=== PATIENT | male | born 1970 | race Caucasian/White ===

== ENCOUNTER 2018-08-17 13:14 | Emergency (ER) | payer MEDICAID, SELFPAY ==
[2018-08-17 13:15] VITALS: BP 135/95; PULSE 86; RESP 18; TEMP 36.4; O2SAT 98; BMI 26.6
--- NOTE | 2018-08-17 13:37 | ED.VISSUMM ---
- ER Visit Summary Date of Service: 08/17/18 Chief Complaint: [Rash] History of Present Illness: The patient is a 47 M [presents the emergency department complaint of a rash for over 2 weeks. Patient states that he has been itching and digging at it. Patient states that at times there are welts. He denies any new soaps or detergents. Patient came up here from [place] 3 weeks ago. Patient has been staying with his brother but nobody else at home has this rash. Patient denies recent illness. He denies any new medications. States otherwise he feels fine.] Physical Examination: [HEENT-PERRLA, EOMI. Cranial nerves II through XII grossly intact. TMs clear. Mucous membranes moist. No adenopathy. No scleral icterus. Cardiovascular-regular rate and rhythm without murmur or ectopy Lungs-clear to auscultation, chest wall stable without crepitus or subcu emphysema Abdomen-normoactive bowel sounds, soft, nontender, no rebound or rigidity, no peritoneal signs. Skin exam-patient has a diffuse rash involving the upper extremities, trunk, buttocks that is quite excoriated and pruritic. Patient also has some sporadic red raised urticarial-like lesions. Patient does have some excoriations to the wrists and the web spaces of the digits. Extremities-intact ?4, normal range of motion, normal pulses, atraumatic] Test Results: [None indicated] Emergency Department Course and Treatment: [] Treatment Plan: [She will be written for Elimite as I suspect rash may be related to scabies. Patient also will be given prednisone and Atarax for itching. Patient will be referred to primary care physician as well as manager of data for follow-up.] Disposition: [Discharged home in stable condition] Impression: [Dermatitis Scabies] This note was generated with [employer] dictation software. It may contain incorrect words, spelling, and punctuation that were not noted in review of the chart prior to signing ED Disposition - Plan for ED Patient: Chief Complaint: Itching Referrals: NOT,DEFINED [Primary Care Provider] -
--- NOTE | 2018-08-17 13:40 | ED.DCSUM_ITS ---
- ER Visit Summary Date of Service: 08/17/18 Chief Complaint: [Rash] History of Present Illness: The patient is a 47 M [presents the emergency department complaint of a rash for over 2 weeks. Patient states that he has been itching and digging at it. Patient states that at times there are welts. He denies any new soaps or detergents. Patient came up here from [place] 3 weeks ago. Patient has been staying with his brother but nobody else at home has this rash. Patient denies recent illness. He denies any new medications. States otherwise he feels fine.] Physical Examination: [HEENT-PERRLA, EOMI. Cranial nerves II through XII grossly intact. TMs clear. Mucous membranes moist. No adenopathy. No scleral icterus. Cardiovascular-regular rate and rhythm without murmur or ectopy Lungs-clear to auscultation, chest wall stable without crepitus or subcu emphysema Abdomen-normoactive bowel sounds, soft, nontender, no rebound or rigidity, no peritoneal signs. Skin exam-patient has a diffuse rash involving the upper extremities, trunk, buttocks that is quite excoriated and pruritic. Patient also has some sporadic red raised urticarial-like lesions. Patient does have some excoriations to the wrists and the web spaces of the digits. Extremities-intact ?4, normal range of motion, normal pulses, atraumatic] Test Results: [None indicated] Emergency Department Course and Treatment: [] Treatment Plan: [She will be written for Elimite as I suspect rash may be related to scabies. Patient also will be given prednisone and Atarax for itching. Patient will be referred to primary care physician as well as certified coder for follow-up.] Disposition: [Discharged home in stable condition] Impression: [Dermatitis Scabies] This note was generated with [employer] dictation software. It may contain incorrect words, spelling, and punctuation that were not noted in review of the chart prior to signing ED Disposition - Plan for ED Patient: Chief Complaint: Itching Referrals: NOT,DEFINED [Primary Care Provider] -
--- NOTE | 2018-08-17 13:40 | ED.DEP ---
ED Disposition - Plan for ED Patient: Chief Complaint: Itching Instructions: Scabies Prescriptions: hydrOXYzine tablet [Atarax tablet] 10 mg PO 4X/DAY PRN PRN #30 tab PRN Reason: Itching Permethrin [Elimite] 60 gm TP DAILY #1 cream..g. Prednisone [Deltasone] 20 mg PO BID #10 tab Referrals: NOT,DEFINED [Primary Care Provider] - Gagan Quintana MD [STAFF PHYSICIAN] - 5-7 Days Yogesh Elliott MD [STAFF PHYSICIAN] - 5-7 Days
== END 2018-08-17 14:11 | disposition home or self-care (01) ==
PROVIDERS: Emergency Provider Emergency Medicine
DX: L30.9 Dermatitis, unspecified (principal); B86 Scabies; L50.9 Urticaria, unspecified
CPT/HCPCS: 99282

== ENCOUNTER 2018-12-09 22:25 | Emergency (ER) | payer SELFPAY ==
[2018-12-09 22:26] VITALS: BP 126/87; PULSE 101; RESP 20; TEMP 36.4; O2SAT 99; BMI 25.4
[2018-12-09 22:40] VITALS: BP 141/125; PULSE 90; RESP 13; O2SAT 99
--- NOTE | 2018-12-09 22:43 | EKG12_ITS ---
Test Reason : PALPITATIONS Blood Pressure : / mmHG Vent. Rate : 093 BPM Atrial Rate : 093 BPM P-R Int : 144 ms QRS Dur : 082 ms QT Int : 374 ms P-R-T Axes : 058 -02 047 degrees QTc Int : 465 ms Normal sinus rhythm Minimal voltage criteria for LVH, may be normal variant Nonspecific T wave abnormality Borderline ECG Confirmed by SISI DOLL, FIORDALIZA ([id number]), assignment editor CECILIO YORK ([id number]) on 12/13/2018 1:57:05 PM Referred By: ASIF Confirmed By:FIORDALIZA LAIRD MD
--- NOTE | 2018-12-09 22:50 | RAD_ITS ---
STUDY: X-RAY CHEST REASON FOR EXAM: Male, 47 years old. Heart palpitation TECHNIQUE: PA and lateral views of the chest. COMPARISON: None. FINDINGS: The lungs are clear and hyperexpanded. There is no demonstrated pleural abnormality. Normal size heart. Normal mediastinum and adolfo. Normal visualized pulmonary arteries. Normal visualized aortic arch and descending thoracic aorta. Normal visualized thoracic spine. Normal visualized ribs, clavicles, and shoulders. Remote healed right clavicular deformity. There is no demonstrated abnormality of the visualized soft tissue structures of the upper abdomen. RAD/Chest PA and Lateral IMPRESSION: No pulmonary edema, congestive heart failure or confluent pneumonia. COPD. Electronically Signed: Nakia Townsend MD at 23:12 EDT , Service support ,
[2018-12-09] MEDS: 0.9% Normal Saline 1,000 ML 1000 ML IV (22:53)
[2018-12-09 22:57] LABS: Absolute Lymphocyte Count 1.85 X10^3/ul (0.83-4.51); Absolute Neutrophil Count 9.2 X10^3/uL (2.0-7.7); Basophil# 0.13 X10^3/uL; Basophil% 0.9 % (0-1); Differential Indicated SCAN CRITERIA MET; Eosinophils% 15.1 % (0-5); Hematocrit 43.7 % (40-54); Hemoglobin 15.6 g/dl (13.0-16.5); Lymphocyte # 1.85 X10^3/ul (4.0); Lymphocyte % 12.7 % (19-41); Mean Corp Hgb Conc 35.7 g/gl (32-36); Mean Corpuscular Hgb 32.2 pg (27.0-32.0); Mean Corpuscular Volume 90.1 fL (80-94); Mean Platelet Vol. 8.9 fl (6.2-12.0); Monocyte# 1.16 X10^3/uL; Neutrophil # 9.15 X10^3/uL (2.7-7.7); POSITIVE COUNT NO; POSITIVE DIFFERENTIAL YES; POSITIVE MORPHOLOGY NO; Platelet Count 467 K/mm3 (150-450); RBC Distribution Width CV 12.4 % (11.6-14.6); RBC Distribution Width SD 40.7 fl (35.1-43.9); Red Blood Count 4.85 M/mm3 (4.6-6.2); White Blood Count 14.5 K/mm3 (4.4-11.0)
[2018-12-09] MEDS: Aspirin 81 MG TAB.CHEW 324 MG PO (23:08)
[2018-12-09 23:11] LABS: Anion Gap 15 (5-15); BUN 34 mg/dL (7-18); Calcium,Total 9.7 mg/dL (8.5-10.1); Chloride 97 mmol/L (98-107); Creatinine, Serum 2.26 mg/dL (0.70-1.30); EST Glomerular Filtration Rate 33 mL/min (>60); Est Glom Filt Rate - Afr Amer 40 mL/min (>60); Estimated Creatinine Clearance 33.11 ml/min; Glucose 98 mg/dL (74-106); Potassium 3.8 mmol/L (3.5-5.1); Sodium Level 131 mmol/L (136-145)
[2018-12-09 23:12] LABS: Magnesium 2.6 mg/dL (1.6-2.6)
--- NOTE | 2018-12-09 23:26 | ED.VISSUMM ---
- ER Visit Summary Date of Service: 12/09/18 Chief Complaint: Nauseated and shaky History of Present Illness: The patient is a 47 M who presents with nausea and feeling shaky. His symptoms initially began about 5 hours before presentation. He had palpitations, felt like his heart was racing. He also felt short of breath. He felt nauseated without vomiting. He also was shaky although this has improved. 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 However he has had intermittent similar symptoms for about 6 months. He was seen at either clinic or emergency department for similar symptoms about 6 months ago. Based on his description it sounds like he had an abnormal EKG at that time. He was started on blood pressure medications. He never really followed up. He does have an appointment with establishing a primary care physician for next week. Physical Examination: Heart rate 101 vitals otherwise unremarkable No distress Moist mucous membranes Heart regular rate and rhythm Lungs are clear Abdomen soft Alert Test Results: EKG shows sinus rhythm at a rate of 93 there are T wave inversions in V4 through V6. Repeat EKG shows sinus rhythm but morphology of the lateral precordial leads is quite different. There is also some ST elevation in V2 and V3 but no reciprocal changes. On monitoring manager he is noted to be changing between 2 distinct rhythm morphologies. Labs notable for white count 14.5, platelets 467. BUN 34 with a creatinine of 2.26. No old labs to compare to magnesium normal. Troponin negative. Chest x-ray there is no edema CHF or pneumonia. Emergency Department Course and Treatment: Although patient has no aspirin he was given aspirin given EKG changes. Workup as above. I am concerned given his palpitations and apparent distinct rhythms. Therefore I did feel he should be admitted for further evaluation, cardiac monitoring, cardiology consultation. Patient discussed with hospitalist and admitted. Treatment Plan: [] Disposition: Admit Impression: Palpitations Renal insufficiency. This note was generated with [employer] dictation software. It may contain incorrect words, spelling, and punctuation that were not noted in review of the chart prior to signing ED Disposition - Plan for ED Patient: Referrals: Care Physician,No Primary [Primary Care Provider] -
--- NOTE | 2018-12-09 23:28 | EKG12_ITS ---
Test Reason : PALPITATIOINS Blood Pressure : / mmHG Vent. Rate : 089 BPM Atrial Rate : 089 BPM P-R Int : 150 ms QRS Dur : 090 ms QT Int : 382 ms P-R-T Axes : 059 -07 066 degrees QTc Int : 464 ms Normal sinus rhythm Minimal voltage criteria for LVH, may be normal variant Septal infarct , age undetermined Abnormal ECG Confirmed by SISI DOLL, FIORDALIZA ([id number]), online editor CECILIO YORK ([id number]) on 12/13/2018 1:57:23 PM Referred By: BB Confirmed By:FIORDALIZA LAIRD MD
--- NOTE | 2018-12-09 23:29 | ED.DCSUM_ITS ---
- ER Visit Summary Date of Service: 12/09/18 Chief Complaint: Nauseated and shaky History of Present Illness: The patient is a 47 M who presents with nausea and feeling shaky. His symptoms initially began about 5 hours before presentation. He had palpitations, felt like his heart was racing. He also felt short of breath. He felt nauseated without vomiting. He also was shaky although this has improved. 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 However he has had intermittent similar symptoms for about 6 months. He was seen at either clinic or emergency department for similar symptoms about 6 months ago. Based on his description it sounds like he had an abnormal EKG at that time. He was started on blood pressure medications. He never really followed up. He does have an appointment with establishing a primary care physician for next week. Physical Examination: Heart rate 101 vitals otherwise unremarkable No distress Moist mucous membranes Heart regular rate and rhythm Lungs are clear Abdomen soft Alert Test Results: EKG shows sinus rhythm at a rate of 93 there are T wave inversions in V4 through V6. Repeat EKG shows sinus rhythm but morphology of the lateral precordial leads is quite different. There is also some ST elevation in V2 and V3 but no reciprocal changes. On cardiac catheterization technologist he is noted to be changing between 2 distinct rhythm morphologies. Labs notable for white count 14.5, platelets 467. BUN 34 with a creatinine of 2.26. No old labs to compare to magnesium normal. Troponin negative. Chest x-ray there is no edema CHF or pneu monia. Emergency Department Course and Treatment: Although patient has no aspirin he was given aspirin given EKG changes. Workup as above. I am concerned given his palpitations and apparent distinct rhythms. Therefore I did feel he should be admitted for further evaluation, cardiac monitoring, cardiology consultation. Patient discussed with hospitalist and admitted. Treatment Plan: [] Disposition: Admit Impression: Palpitations Renal insufficiency. This note was generated with [employer] dictation software. It may contain incorrect words, spelling, and punctuation that were not noted in review of the chart prior to signing ED Disposition - Plan for ED Patient: Referrals: Care Physician,No Primary [Primary Care Provider] -
[2018-12-10 00:40] VITALS: BP 116/78; PULSE 81; RESP 13; O2SAT 98
[2018-12-10 01:22] VITALS: BP 114/85; PULSE 73; RESP 13; O2SAT 99
[2018-12-12 13:00] LABS: Pathologist Review Reviewed
== END 2018-12-10 01:25 | disposition short-term general hospital (02) ==
PROVIDERS: Emergency Provider Emergency Medicine; Family Provider Family Medicine; PCP Family Medicine; Referring Provider Hospitalist
DX: R00.2 Palpitations (principal); N28.9 Disorder of kidney and ureter, unspecified; I10 Essential (primary) hypertension; Z79.899 Other long term (current) drug therapy
CPT/HCPCS: 71046; 80048; 83735; 84484; 85025; 93005; 96360; 96361; 99285; J7030

== ENCOUNTER 2020-12-17 20:46 | Emergency (ER) | payer SELFPAY ==
[2020-12-17 20:46] VITALS: BP 185/127; PULSE 77; RESP 16; TEMP 36.2; O2SAT 97; BMI 24.0
--- NOTE | 2020-12-17 20:55 | EDS_ITS ---
HPI History of Present Illness Chief Complaint: Upper Extremity Injury [facility] Medical History (Updated 12/17/20 @ 22:[address] Laith Back MD) Hypertension Home Medications NK 12/17/20 [History Last Taken Unknown] Allergy/AdvReac Type Severity Reaction Status Date / Time No Known Allergies Allergy Verified 12/17/20 20:48 no significant family history Social History Smoking Status: Never smoker ROS ROS ED Constitutional Constitutional ED: Reports systems reviewed and no addt'l complaints, except as documented Eyes Eyes: Reports systems reviewed and no addt'l complaints, except as documented ENT ENT ED: Reports systems reviewed and no addt'l complaints, except as documented Cardiovascular Cardiovascular: Reports systems reviewed and no addt'l complaints, except as documented Respiratory/Chest Respiratory/Chest: Reports systems reviewed and no addt'l complaints, except as documented Gastrointestinal Gastrointestinal: Reports systems reviewed and no addt'l complaints, except as documented Genitourinary Genitourinary ED: Reports systems reviewed and no addt'l complaints, except as documented Musculoskeletal Musculoskeletal: Reports systems reviewed and no addt'l complaints, except as documented Integumentary Reports systems reviewed and no addt'l complaints, except as documented Neurologic Neurologic: Reports systems reviewed and no addt'l complaints, except as documented Psychiatric Psychiatric: Reports systems reviewed and no addt'l complaints, except as documented Endocrine Endocrinology: Reports systems reviewed and no addt'l complaints, except as documented Hematologic/Lymphatic Hematologic/Lymphatic: Reports systems reviewed and no addt'l complaints, except as documented Allergic/Immunologic Allergic/Immunologic ED: Reports systems reviewed and no addt'l complaints, except as documented EXAM Physical Exam Narrative Exam Narrative: Middle-aged male no acute distress. 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 And primarily complaining of pain and deformity to his right long on exam. He is [id number]. He has no known prior surgery or significant injury to his right hand. Const Vital Signs: 12/17/20 20:46 Temperature 97.2 F L Temperature Source Temporal Pulse Rate 77 Respiratory Rate 16 Blood Pressure 185/127 H Blood Pressure Mean 146 Pulse Ox 97 Oxygen Delivery Method Room Air Positive well nourished, well developed and no apparent distress General Appearance ED: active, cooperative, comfortable and well developed Orientation / Consciousness: awake and oriented to person Exam Limitations: no limitations HEENT Reports normocephalic and head/scalp atraumatic normocephalic and normal to inspection Face and Sinus: normal facial exam and sinuses nontender Nose: external nose normal Mouth ED: Yes oral and palatal mucosa normal Mouth: oral and palatal mucosa normal Eyes PERRL and EOMs intact bilaterally General Eye ED: Yes normal appearance of both eyes Eyelid: eyelids normal Neck full ROM and no lymphadenopathy General: normal visual inspection; Negative for tenderness Lymph Lymphatic: no lymphadenopathy noted Chest Wall inspection of chest normal and palpation of chest normal Resp normal respiratory effort, normal air movement, no retractions, no use of acces veronique muscles and clear to auscultation bilaterally Effort and Inspection: able to speak in complete sentences Auscultation: clear to auscultation bilaterally Cardio regular rate and regular rhythm Rhythm: regular rhythm GI normal to inspection, nondistended, normoactive bowel sounds Auscultation: normoactive bowel sounds Palpation: soft and firm Back/Spine Cervical Spine: cervical ROM normal Thoracic Spine / Upper Back: normal to inspection Lumbar Spine / Lower Back: normal to inspection Extremity normal to inspection, full ROM, no joint enlargement, no calf tenderness and no pedal edema Extremity Narrative: Has tenderness and swelling to both the right long and r ight ring fingers. Decreased flexion and range of motion due to pain and swelling. No laceration ration. Other digits are nontender with normal range of motion. General Extremety ED: Yes normal exam except as noted General Extremity: normal exam except as noted Neuro oriented x3 Sensorium / Orientation: awake and alert Psych Appearance: grossly normal Attitude: calm Activity / Motor Behavior: appropriate eye contact Speech: normal speech Thought Process: normal thought process Skin no rashes or lesions noted and no mottling General Skin Exam: no breakdown Lesions: no lesions Trauma: no lacerations or abrasions MDM MDM MDM Narrative Medical decision making narrative: Male that fell yesterday injuring his right hand primarily the right long and ring fingers when he struck the ground. Today he has swelling, pain and decreased range of motion. Right hand x-ray being obtained. Manual reduction of the left ring finger proximal phalanx. He tolerated procedure well. He will be placed in aluminum splint. He was instructed to ice and elevate. Motrin for pain and swelling. Do range of motion exercises. If he does not gain complete range of motion back he needs to follow-up with orthopedics. Procedures Other Procedures Procedure(s): Dislocated finger reduction: Right hand proximal metacarpal joint is dislocated. Manual reduction using traction countertraction. Patient had improved range of motion but was still somewhat limited due to the swelling and pain. He did not want post reduction x-rays obtained. Discharge Plan Triage Chief Complaint: Upper Extremity Injury ED Provider: Laith Back Dx/Rx/DC Orders Clinical Impression: Dislocation of finger, interphalangeal, closed Instructions: ED Joint Dislocation, ED Finger Dislocation Prescriptions: No Action NK RF: 0 Primary Care Provider: Michael Puente Referrals: Michael Puente MD [Primary Care Provider] - Pro Heller DO [STAFF PHYSICIAN] - 1 Week if not improving Activity Restrictions/Additional Instructions: Ice and elevate left ring finger to decrease pain and swelling. Motrin for pain and swelling. Split off 5 times a day to do range of motion. Follow up with orthopedic doctor if you do not regain full range of motion Disposition Patient Disposition: Home, self care
--- NOTE | 2020-12-17 21:08 | ED.RN ---
ENCOURAGED PT TO RESTART BP MEDS. PT STATES HE WOULD RATHER LET THE LORD DECIDE WHEN ITS HIS TIME TO .
--- NOTE | 2020-12-17 21:10 | RAD_ITS ---
STUDY: X-RAY - RIGHT HAND REASON FOR EXAM: Male, 49 years old. Trauma. Pain. TECHNIQUE: 3 view(s) of the hand. COMPARISON: None. FINDINGS: Normal radiocarpal articulation. Normal distal radioulnar joint. Normal visualized carpal bones. Normal carpal articulations Normal carpometacarpal articulation of the thumb. Normal second through fifth carpometacarpal joints. Normal metacarpi. Normal metacarpophalangeal joint of the thumb. Normal interphalangeal joint of the thumb. Normal proximal and distal phalanges of the thumb. Normal metacarpophalangeal joints of the second through fifth fingers. There is a dorsal and medial dislocation of the fourth proximal interphalangeal joint. Otherwise normal proximal and distal interphalangeal joints of the second through fifth fingers. Normal phalanges of the second through fifth fingers. No visualized fracture. There is soft tissue swelling about the fourth digit. RAD/Hand Min 3 Views IMPRESSION: Dorsal dislocation of the fourth proximal interphalangeal joint with associated soft tissue swelling. Electronically Signed: Greg Hickman DO at 21:38 EDT Tel [phone], Service support ,
== END 2020-12-17 22:26 | disposition home or self-care (01) ==
PROVIDERS: Emergency Provider Emergency Medicine; PCP Family Medicine
DX: S63.285A Dislocation of proximal interphalangeal joint of left ring finger, initial encounter (principal); W18.30XA Fall on same level, unspecified, initial encounter; Y93.01 Activity, walking, marching and hiking; Y92.89 Other specified places as the place of occurrence of the external cause; Y99.8 Other external cause status
CPT/HCPCS: 26770; 73130; 99283

== ENCOUNTER 2023-05-08 23:45 | Emergency (ER) | payer MEDICAID, SELFPAY ==
[2023-05-08 23:46] VITALS: BP 176/111; PULSE 84; RESP 16; TEMP 36.3; O2SAT 98; BMI 24.3
[2023-05-09 00:24] VITALS: BP 153/95; PULSE 78; RESP 16; O2SAT 98
--- NOTE | 2023-05-09 00:46 | EKG12_ITS ---
Test Reason : CP Blood Pressure : / mmHG Vent. Rate : 073 BPM Atrial Rate : 073 BPM P-R Int : 162 ms QRS Dur : 112 ms QT Int : 394 ms P-R-T Axes : 066 -19 049 degrees QTc Int : 434 ms Normal sinus rhythm Incomplete right bundle branch block Minimal voltage criteria for LVH, may be normal variant ( R in aVL ) Septal infarct (cited on or before 09-DEC-2018) Abnormal ECG Confirmed by MIREYA DOLL, TY ([id number]), senior technical editor MONIKA PEÑA ([id number]) on 05/11/2023 1:48:07 PM Referred By: Confirmed By:LUZ GOMES MD
[2023-05-09 01:01] VITALS: BP 163/105; PULSE 85; RESP 16; O2SAT 96
[2023-05-09] MEDS: Aspirin 325 MG Tablet PO (01:02)
[2023-05-09 01:03] LABS: Absolute Lymphocyte Count 1.08 X10^3/uL (0.83-4.51); Absolute Neutrophil Count 9.7 X10^3/uL (2.0-7.7); Basophil# 0.09 X10^3/uL; Basophil% 0.7 % (0-1); Eosinophil# 0.18 X10^3/uL; Eosinophils% 1.5 % (0-5); Hematocrit 41.2 % (40-54); Hemoglobin 13.6 g/dL (13.0-16.5); Lymphocyte # 1.08 X10^3/ul (0.83-4.51); Lymphocyte % 8.9 % (19-41); Mean Corpuscular Hgb 30.2 pg (27.0-32.0); Mean Corpuscular Volume 91.4 fL (80-94); Monocyte% 8.3 % (0-10); NRBC Flagged by Analyzer 0 % (0-5); Neutrophil # 9.71 X10^3/uL (2.7-7.7); Neutrophil % 80.4 % (47-70); Platelet Count 389 K/mm3 (150-450); RBC Distribution Width CV 12.9 % (11.6-14.6); RBC Distribution Width SD 43.1 fl (35.1-43.9); Red Blood Count 4.51 M/mm3 (4.6-6.2); White Blood Count 12.1 K/mm3 (4.4-11.0)
--- NOTE | 2023-05-09 01:15 | RAD_ITS ---
EXAM: XR CHEST, 2 VIEWS CLINICAL INDICATION: chest pain TECHNIQUE: Frontal and lateral views of the chest. COMPARISON: 2 view chest 12/09/2018 FINDINGS: LUNGS AND PLEURAL SPACES: Unremarkable. No consolidation or edema. No pneumothorax. No effusion. HEART: Unremarkable. Cardiac silhouette not enlarged. MEDIASTINUM: Central airways and mediastinal contour are unremarkable. BONES/JOINTS: Unremarkable. SOFT TISSUES: Unremarkable. RAD/Chest PA and Lateral IMPRESSION: No radiographic evidence of acute cardiopulmonary disease. Electronically Signed: Mario Isbell MD at 1:36 EDT ,
[2023-05-09 01:22] LABS: Anion Gap 8 (5-15); BUN 11 mg/dL (7-18); Calcium,Total 8.9 mg/dL (8.5-10.1); Chloride 102 mmol/L (98-107); Creatinine, Serum 0.84 mg/dL (0.70-1.30); EST Glomerular Filtration Rate 101 mL/min (>60); Est Glom Filt Rate - Afr Amer 122 mL/min (>60); Estimated Creatinine Clearance 77.64 ml/min; Glucose 133 mg/dL (74-106); Magnesium 2.1 mg/dL (1.6-2.6); Potassium 3.6 mmol/L (3.5-5.1); Sodium Level 135 mmol/L (136-145); Troponin-I HS 10 pg/mL (3.0-78.0)
[2023-05-09 03:11] VITALS: BP 158/101; PULSE 79; RESP 16; O2SAT 97
[2023-05-09 03:31] LABS: Troponin-I HS 10 pg/mL (3.0-78.0)
--- NOTE | 2023-05-09 04:06 | EDS_ITS ---
HPI History of Present Illness Chief Complaint: Chest Pain Informant: patient Narrative Narrative: Patient is a 52-year-old male with past medical history of hypertension. He states he has not been under a great deal of stress recently and has multiple complaint. The main concern for the patient however as he had a bout of generalized chest discomfort and states he has scar tissue around his heart and he is concerned he may have developed in a normal heart rhythm or heart attack because of this and therefore comes in for evaluation. [facility] Medical History (Updated 05/10/23 @ 01:[address] Yossi Rivera DO) Hypertension Home Medications NK 12/17/20 [History Last Taken Unknown] Allergy/AdvReac Type Severity Reaction Status Date / Time No Known Allergies Allergy Verified 05/08/23 23:46 Social History Smoking Status: Never smoker ROS ROS ED Constitutional Constitutional ED: Denies chills or fever(s) Eyes Eyes: Denies change in vision ENT ENT ED: Denies rhinorrhea Cardiovascular Cardiovascular: Reports chest pain; Denies palpitations or racing heartbeat Respiratory/Chest Respiratory/Chest: Reports cough; Denies dyspnea Gastrointestinal Gastrointestinal: Denies abdominal pain, diarrhea, nausea or vomiting Genitourinary Genitourinary ED: Denies dysuria Musculoskeletal Musculoskeletal: Denies myalgias Integumentary Denies rash Neurologic Neurologic: Denies headache(s) Psychiatric Psychiatric: Reports anxiety Hematologic/Lymphatic Hematologic/Lymphatic: Denies easy bleeding or easy bruising EXAM Physical Exam Const Vital Signs: 05/09/23 03:11 05/09/23 04:29 05/09/23 04:30 Pulse Rate 79 Respiratory Rate 16 Blood Pressure 158/101 H 158/101 H 158/101 H Blood Pressure Mean 120 120 Pulse Ox 97 Oxygen Delivery Method Room Air Positive well nourished and well developed General Appearance ED: well developed HEENT Reports moist mucous membranes HEENT Narrative: Cobblestoning noted in the posterior pharynx consistent with sinus drainage without airway edema or compromise or signs of secondary infection in the posterior pharynx Eyes PERRL and EOMs intact bilaterally Neck supple and no JVD Neck Narrative: No nuchal rigidity or meningeal signs Chest Wall palpation of chest normal Chest Narrative: No bony deformity or crepitance Resp normal respiratory effort and clear to auscultation bilaterally Cardio regular rate and regular rhythm Rate: other Other Details: Radial and carotid pulses are equal and symmetric GI normal to inspection, nondistended, normoactive bowel sounds, non-tender, non- distended and no masses GI Narrative: No voluntary guarding or rigidity. No pulsatile mass or fluid wave Auscultation: normoactive bowel sounds Palpation: soft Extremity normal to inspection Extremity Narrative: No asymmetric edema no pitting edema negative Homans' sign bilaterally Neuro oriented x3 and CN's II-XII intact bilaterally Sensorium / Orientation: alert Motor Exam: strength 5/5 throughout Psych Psych Narrative: Patient has a nervous/anxious affect Skin no rashes or lesions noted MDM MDM MDM Narrative Medical decision making narrative: Patient presented to the ER hypertensive but does have a past medical history of this. He had multiple complaints but the most critical with his current report of chest discomfort as he does have risk factors for CAD and also reports a past history of scar tissue which led to cardiac dysrhythmia. Differential diagnosis is for acute coronary syndrome versus musculoskeletal chest wall pain versus Prinzmetal's angina or hypertensive urgency. Basic blood work was obtained and shows no signs of acute kidney injury with a initial and delta troponin of 10 indicating no acute coronary syndrome. Chest x-ray also showed no signs of lung pathology. Therefore at this time with cardiac work-up being negative and the fact patient had no cardiac dysrhythmia while on the monitor I do not feel there is need for inpatient treatment he is otherwise safe for discharge History & Record Review Discussion w/independent historian: Patient Lab Data Attestation: I reviewed the patient's lab results. Labs: Laboratory Results - last 24 hr 05/09/23 05/09/23 00:58 03:07 Sodium 135 L Potassium 3.6 Chloride 102 Carbon Dioxide 25.0 Anion Gap 8 BUN 11 Creatinine 0.84 Estim Creat Clear Calc 77.64 Est GFR (MDRD) Af Amer 122 Est GFR (MDRD) Non-Af 101 BUN/Creatinine Ratio 13.0 Glucose 133 H Calcium 8.9 Magnesium 2.1 Troponin I High Sens 10 10 Radiography Diagnostic Testing: Clinical Impression(s) from Imaging Studies Chest X-Ray 05/09/23 01:15 IMPRESSION: No radiographic evidence of acute cardiopulmonary disease. Electronically Signed: Mario Isbell MD at 1:36 EDT Reading Location ID and State: [facility] / [place] Tel , Service support , Chest x-ray as interpreted by the emergency medicine physician reveals no acute infiltrate pneumothorax pleural effusion or widening of the mediastinum Discharge Plan Triage Chief Complaint: Chest Pain ED Provider: Yossi Rivera Dx/Rx/DC Orders Clinical Impression: Nonspecific chest pain, Hypertension Instructions: ED Chest Pain, Uncertain Cause Prescriptions: No Action NK Primary Care Provider: Care Physician,No Primary Referrals: Care Physician,No Primary [Primary Care Provider] - Activity Restrictions/Additional Instructions: Your work-up showed no signs of active cardiac damage or lack of blood flow and therefore continue your home medications as previously directed and follow-up with your family doctor for repeat evaluation Disposition Disposition: Home, Self Care Discharge Date/Time: 05/09/23 04:30
[2023-05-09 04:29] VITALS: BP 158/101
[2023-05-09 04:30] VITALS: BP 158/101
== END 2023-05-09 04:30 | disposition home or self-care (01) ==
PROVIDERS: Emergency Provider Emergency Medicine; Visit Provider Emergency Medicine
DX: R07.9 Chest pain, unspecified (principal); I10 Essential (primary) hypertension; F41.9 Anxiety disorder, unspecified
CPT/HCPCS: 36415; 71046; 80048; 83735; 84484; 85025; 93005; 99282; A4216

== ENCOUNTER 2025-05-18 22:57 | Inpatient (IN) | payer SELFPAY ==
[2025-05-18 22:57] VITALS: BP 143/100; PULSE 79; RESP 16; TEMP 37.2; O2SAT 97; BMI 29.1
[2025-05-19] VITALS (11 sets, daily range): BP systolic 99–167; BP diastolic 61–83; PULSE 54–78; RESP 14–18; TEMP 36.4–37.1; O2SAT 97–99; BMI 28.4
[2025-05-19 00:51] LABS: Hematocrit 46.7 % (40-54); Hemoglobin 15.8 g/dL (13.0-16.5); Immature Granulocytes Count 0.020 X10^3/uL (0.0-0.0); Mean Corp Hgb Conc 33.8 g/dL (32-36); Mean Corpuscular Volume 93.2 fL (80-94); Mean Platelet Vol. 9.2 fl (6.2-12.0); NRBC Flagged by Analyzer 0 % (0-5); Platelet Count 360 K/mm3 (150-450); RBC Distribution Width CV 13.0 % (11.6-14.6); RBC Distribution Width SD 44.1 fl (35.1-43.9); Red Blood Count 5.01 M/mm3 (4.6-6.2); White Blood Count 5.6 K/mm3 (4.4-11.0)
--- NOTE | 2025-05-19 01:03 | EDS_ITS ---
HPI History of Present Illness Chief Complaint: ETOH Intox [facility] Medical History Alcohol abuse Hypertension Home Medications ?Medication ?Instructions ?Recorded ?Last Taken ?Type lisinopril 20 mg tablet 20 mg PO DAILY 05/19/25 Unkn own History risperidone 1 mg tablet (Risperdal) 1 mg PO DAILY 04/24 03/16 Unknown History risperidone 2 mg tablet (Risperdal) 2 mg PO QHS Unknown History trazodone 150 mg tablet 150 mg PO DAILY 05/19/25 Unk nown History Allergy/AdvReac Type Severity Reaction Status Date / Time No Known Allergies Allergy Verified 05/18/25 22:57 Social History Smoking Status: Never smoker EXAM Physical Exam Const Vital Signs: 05/18/25 22:57 05/19/25 00:47 Temperature 98.9 F 98.4 F Temperature Source Oral Oral Pulse Rate 79 78 Respiratory Rate 16 18 Blood Pressure 143/100 H 117/83 H Blood Pressure Mean 114 94 Blood Pressure Source Monitor Blood Pressure Position Semi-Fowlers Blood Pressure Location Left Arm Pulse Ox 97 98 Oxygen Delivery Method Room Air Room Air MDM MDM MDM Narrative Medical decision making narrative: HISTORY OF PRESENT ILLNESS: Chief complaint: Alcohol detox 54-year-old male history of alcohol use, hypertension presents with request for alcohol detox. He states REVIEW OF SYSTEMS: Pertinent positives: [] Pertinent negatives: [] PHYSICAL EXAM: Nursing triage notes reviewed, Vital signs reviewed Constitutional: please see mdm HENT: MMM Eyes: Pupils equal round and reactive to light, Extraocular muscles intact Neck: No stridor, no JVD, full neck ROM Lungs: Clear to auscultation, No wheezing or rales. No increased work of breathing, no conversational dyspnea, no accessory muscle use, no nasal flaring. No respiratory distress noted Heart: Regular rate and rhythm, No murmurs, No rubs and No gallops, 2+ distal pulses (radial, femoral, posterior tibial) in all extremities Abdomen: Soft, there is no tenderness, rigidity, rebound or guarding, no obvious peritoneal signs, no palpable pulsatile abdominal masses, no auscultated abdominal bruit : No CVAT Extremities: No edema Neuro: No new focal neurological deficits, cranial nerves II through XII intact, 5/5 strength in all present extremities. Intact sensation to light touch in all present extremities, 2+ reflexes bilateral patella tendons. Skin: No rash or lesions noted MEDICAL DECISION MAKING: Chief Complaint: please see HPI External records reviewed: Reviewed prior ED visit Factors affecting care: As per HPI Social determinants of health: History of alcohol use History obtained from others: none [] Consults: Internal medicine (Dr. Rich) MDM Narrative: Patient was initially hemodynamically stable, afebrile and nontoxic-appearing I obtained a broad lab and imaging work to further determine if the patient was suffering from a life-threatening etiology. ALL IMAGES (IF OBTAINED) HAVE BEEN PERSONALLY REVIEWED AND INTERPRETED BY MYSELF. CBC without leukocytosis, severe anemia, no thrombocytopenia. The patient and/or family, caregivers express understanding. The patient and/or family, caregivers agrees with the plan. Shared decision making: I will have a discussion with the patient and or visitors regarding risk/benefits of further testing or admission. They will be made aware of of the risk/benefits inherent in this decision they will be given the opportunity to voice understanding. Total critical care time today provided was at least 0 [] minutes. This excludes separately billable procedures. Critical care time (if documented) is secondary to the patient having high probability of clinically significant/life threatening deterioration in the patient's condition which required my urgent intervention. Impression: 1. [] 2. [] [] Dispo: [] This note was generated with [employer] dictation software. It may contain incorrect words, spelling, and punctuation that were not noted in review of the chart prior to signing. Lab Data Labs: Laboratory Results - last 24 hr 05/19/25 00:45 WBC 5.6 RBC 5.01 Hgb 15.8 Hct 46.7 MCV 93.2 MCH 31.5 MCHC 33.8 RDW Std Deviation 44.1 H RDW Coeff of Liz 13.0 Plt Count 360 MPV 9.2 Immature Gran % (Auto) 0.400 Neut % (Auto) 45.7 L Lymph % (Auto) 43.[address] % (Auto) 7.3 Eos % (Auto) 1.8 Baso % (Auto) 1.1 H Absolute Neuts (auto) 2.6 Absolute Lymphs (auto) 2.46 Nucleated RBC % 0 Discharge Plan Triage Chief Complaint: ETOH Intox ED Provider: Drew Llanos Dx/Rx/DC Orders Prescriptions: No Action lisinopril 20 mg tablet 20 mg PO DAILY trazodone 150 mg tablet 150 mg PO DAILY risperidone [Risperdal] 1 mg tablet 1 mg PO DAILY risperidone [Risperdal] 2 mg tablet 2 mg PO QHS Primary Care Provider: Care Physician,No Primary Referrals: Care Physician,No Primary [Primary Care Provider, Medical] Print Language: Moroccan
--- NOTE | 2025-05-19 01:03 | EX.ED.DYSGE1 ---
HPI History of Present Illness Chief Complaint: ETOH Intox [facility] Medical History Alcohol abuse Hypertension Home Medications ?Medication ?Instructions ?Recorded ?Last Taken ?Type lisinopril 20 mg tablet 20 mg PO DAILY blood pressure 05/19/25 Unknown History risperidone 1 mg tablet (Risperdal) 1 mg PO DAILY depression 05/19/25 Unknown History risperidone 2 mg tablet (Risperdal) 2 mg PO [facility] mental health 05/19/25 Unknown History sertraline 25 mg tablet (Zoloft) 25 mg PO DAILY depression 05/19/25 Unknown History trazodone 150 mg tablet 150 mg PO DAILY sleep 05/19/25 Unknown History Allergy/AdvReac Type Severity Reaction Status Date / Time No Known Allergies Allergy Verified 05/19/25 05:30 Social History Smoking Status: Never smoker EXAM Physical Exam Const Vital Signs: 05/18/25 22:57 05/19/25 00:47 05/19/25 00:57 Temperature 98.9 F 98.4 F Temperature Source Oral Oral Pulse Rate 79 78 66 Respiratory Rate 16 18 14 Blood Pressure 143/100 H 117/83 H 117/83 H Blood Pressure Mean 114 94 94 Blood Pressure Source Monitor Blood Pressure Position Semi-Fowlers Blood Pressure Location Left Arm Pulse Ox 97 98 98 Oxygen Delivery Method Room Air Room Air 05/19/25 01:00 05/19/25 02:00 05/19/25 04:21 Temperature 98.7 F Temperature Source Pulse Rate 73 72 68 Respiratory Rate 14 18 16 Blood Pressure 105/67 105/61 99/66 Blood Pressure Mean 79 75 77 Blood Pressure Source Blood Pressure Position Blood Pressure Location Pulse Ox 97 98 98 Oxygen Delivery Method Room Air MDM MDM MDM Narrative Medical decision making narrative: HISTORY OF PRESENT ILLNESS: Chief complaint: Alcohol detox 54-year-old male history of alcohol use, hypertension presents with request for alcohol detox. Patient states he drinks approximately 6 - 24 ounce malt liquor beverages daily. Last drink was approximate 3 hours ago. No other drug use noted REVIEW OF SYSTEMS: Pertinent positives: None Pertinent negatives: None PHYSICAL EXAM: Nursing triage notes reviewed, Vital signs reviewed Constitutional: please see mdm HENT: MMM Eyes: Pupils equal round and reactive to light, Extraocular muscles intact Neck: No stridor, no JVD, full neck ROM Lungs: Clear to auscultation, No wheezing or rales. No increased work of breathing, no conversational dyspnea, no accessory muscle use, no nasal flaring. No respiratory distress noted Heart: Regular rate and rhythm, No murmurs, No rubs and No gallops, 2+ distal pulses (radial, femoral, posterior tibial) in all extremities Abdomen: Soft, there is no tenderness, rigidity, rebound or guarding, no obvious peritoneal signs, no palpable pulsatile abdominal masses, no auscultated abdominal bruit : No CVAT Extremities: No edema Neuro: No new focal neurological deficits, cranial nerves II through XII intact, 5/5 strength in all present extremities. Intact sensation to light touch in all present extremities, 2+ reflexes bilateral patella tendons. Skin: No rash or lesions noted MEDICAL DECISION MAKING: Chief Complaint: please see HPI External records reviewed: Reviewed prior ED visit Factors affecting care: As per HPI Social determinants of health: History of alcohol use History obtained from others: none Consults: Internal medicine (Dr. Rich) [facility] Narrative: Patient was initially hemodynamically stable, afebrile and nontoxic-appearing. Exam unremarkable. I obtained a broad lab and imaging work to further determine if the patient was suffering from a life-threatening etiology. ALL IMAGES (IF OBTAINED) HAVE BEEN PERSONALLY REVIEWED AND INTERPRETED BY MYSELF. CBC without leukocytosis, severe anemia, no thrombocytopenia. CMP without evidence of acute kidney injury, significant electrolyte abnormality, anion gap to suggest end organ hypo-perfusion, no evidence of metabolic acidosis with a normal bicarbonate, no evidence of hepatobiliary obstructive pathology. Urine tox cream negative Serum alcohol elevated consistent with acute alcohol intoxication The patient and/or family, caregivers express understanding. The patient and/or family, caregivers agrees with the plan. Shared decision making: I will have a discussion with the patient and or visitors regarding risk/benefits of further testing or admission. They will be made aware of of the risk/benefits inherent in this decision they will be given the opportunity to voice understanding. Total critical care time today provided was at least 0 minutes. This excludes separately billable procedures. Critical care time (if documented) is secondary to the patient having high probability of clinically significant/life threatening deterioration in the patient's condition which required my urgent intervention. Impression: 1. History of alcohol abuse 2. Encounter for alcohol detox admission 3. Acute alcohol intoxication Dispo: Discharge home This note was generated with [employer] dictation software. It may contain incorrect words, spelling, and punctuation that were not noted in review of the chart prior to signing. Lab Data Labs: Laboratory Results - last 24 hr 05/19/25 05/19/25 00:30 00:45 WBC 5.6 RBC 5.01 Hgb 15.8 Hct 46.7 MCV 93.2 MCH 31.5 MCHC 33.8 RDW Std Deviation 44.1 H RDW Coeff of Liz 13.0 Plt Count 360 MPV 9.2 Immature Gran % (Auto) 0.400 Neut % (Auto) 45.7 L Lymph % (Auto) 43.7 H [place] % (Auto) 7.3 Eos % (Auto) 1.8 Baso % (Auto) 1.1 H Absolute Neuts (auto) 2.6 Absolute Lymphs (auto) 2.46 Nucleated RBC % 0 Sodium 143 Potassium 4.2 Chloride 106 Carbon Dioxide 23.2 Anion Gap 14 BUN 7 Creatinine 0.68 L Estim Creat Clear Calc 105.79 Est GFR (MDRD) Non-Af 109 BUN/Creatinine Ratio 10.9 Glucose 92 Calcium 9.3 Total Bilirubin 0.22 AST 24 ALT 32 Alkaline Phosphatase 93 Total Protein 7.8 Albumin 4.8 Globulin 3.0 Albumin/Globulin Ratio 1.6 Urine Opiates Screen NEGATIVE U Buprenorphine Qual NEGATIVE Ur Oxycodone Screen NEGATIVE Urine Methadone Screen NEGATIVE Urine Fentanyl Screen NEGATIVE Ur Barbiturates Screen NEGATIVE Ur Phencyclidine Scrn NEGATIVE Ur Amphetamines Screen NEGATIVE U Benzodiazepines Scrn NEGATIVE Urine Cocaine Screen NEGATIVE U Cannabinoids Screen PRESUMPTIVE POSITIVE Ethyl Alcohol 218.0 H Discharge Plan Disposition Disposition: Acute Care Hospital [facility] Discharge Date/Time: 05/19/25 05:10
[2025-05-19 01:43] LABS: Alcohol, Blood (Medical)-Serum 218.0 mg/dL (<=10.0)
[2025-05-19 01:44] LABS: AST(SGOT) 24 U/L (<=37); Alanine Aminotransfer ALT/SGPT 32 U/L (<=46); Albumin, Serum 4.8 g/dL (3.5-5.0); Alkaline Phosphatase 93 U/L (40-129); Anion Gap 14 (5-15); BUN 7 mg/dL (4-19); BUN/Creat Ratio 10.9 RATIO (10-20); Calcium,Total 9.3 mg/dL (7.6-11.0); Carbon Dioxide 23.2 mmol/L (21.0-32.0); Chloride 106 mmol/L (98-108); Estimated Creatinine Clearance 105.79 ml/min (50-250); Globulin 3.0 g/dL (2.2-4.2); Glucose 92 mg/dL (70-99); Potassium 4.2 mmol/L (3.3-5.1)
[2025-05-19 01:44] LABS: Barbiturate Urine NEGATIVE (< 200 ng/mL); Benzodiazepine Urine NEGATIVE (< 200 ng/mL); PCP Urine NEGATIVE (< 25 ng/mL); THC Urine PRESUMPTIVE POSITIVE (< 50 ng/mL)
--- NOTE | 2025-05-19 04:32 | PCM.HP.STD ---
[facility] - General General Date of Admission: 05/19/25 Date of Service: 05/19/25 Chief Complaint: Requesting EtOH Detox. HPI Narrative VILMA DOE, is a 54 M with a past medical history of essential hypertension; on lisinopril, depression; on trazodone plus risperidone BID and Chronic EtOH Abuse; with patient drinking ~4 bottles of malt liquor daily who presents to [facility] ER requesting EtOH detox. Mr. Doe reports his symptoms began a few hours prior to admission when he last drinking alcohol. He also admits to cannabis abuse but he denies other illicit drug use. He additionally denies associated fever, chills, nausea, vomiting, abdominal pain, chest pain, palpitations, heart racing, lower extremity edema, dysuria, hematuria or rash. In the ER he was noted to have a MALINDA of 218 mg/dL with a UDS positive for cannabinoids with otherwise unremarkable laboratory studies and vital signs and he was then admitted to the general medical floor for ongoing care under the EtOH detox protocol for status is expected to extend beyond 2 midnights. [facility] Medical History Alcohol abuse Hypertension Home Medications ?Medication ?Instructions ?Recorded ?Last Taken ?Type lisinopril 20 mg tablet 20 mg PO DAILY 05/19/25 Unknown History risperidone 1 mg tablet (Risperdal) 1 mg PO DAILY 05/19/25 Unknown History risperidone 2 mg tablet (Risperdal) 2 mg PO QHS 05/19/25 Unknown History trazodone 150 mg tablet 150 mg PO DAILY 05/19/25 Unknown History Allergy/AdvReac Type Severity Reaction Status Date / Time No Known Allergies Allergy Verified 05/18/25 22:57 Social History Smoking Status: Never smoker ROS ROS Narrative Review of Systems: Constitutional: Patient denies fever or chills. Eyes: Patient denies changes in vision or discharge from eyes. ENT: Patient denies runny nose, sore throat or ear pain. Resp: Patient denies SOB or cough. CV: Patient denies chest pain, palpitations, heart racing of LE edema. GI: Patient denies abdominal pain, nausea, vomiting, diarrhea or constipation. : Patient denies dysuria or hematuria. MSK: Patient denies arthralgias or myalgias. Skin: Patient denies rash, abscess, wounds or jaundice. Psych: Patient denies symptoms of uncontrolled depression or anxiety. Neuro: Patient denies headache, paresthesias or focal neurologic deficits. Allergy: Patient denies lip swelling, tongue swelling or urticaria. Hematology: Patient denies easy bleeding or easy bruisability. Endocrinology: Patient denies polyuria, polydipsia, polyphagia or heat/cold intolerance. 14 point ROS otherwise negative except for positives noted above in HPI. Vital Signs Vital Signs Vital Signs: 05/18/25 22:57 05/19/25 00:47 05/19/25 00:57 Temperature 98.9 F 98.4 F Temperature Source Oral Oral Pulse Rate 79 78 66 Respiratory Rate 16 18 14 Blood Pressure 143/100 H 117/83 H 117/83 H Blood Pressure Mean 114 94 94 Blood Pressure Source Monitor Blood Pressure Position Semi-Fowlers Blood Pressure Location Left Arm Pulse Ox 97 98 98 Oxygen Delivery Method Room Air Room Air 05/19/25 01:00 05/19/25 02:00 05/19/25 04:21 Temperature 98.7 F Temperature Source Pulse Rate 73 72 68 Respiratory Rate 14 18 16 Blood Pressure 105/67 105/61 99/66 Blood Pressure Mean 79 75 77 Blood Pressure Source Blood Pressure Position Blood Pressure Location Pulse Ox 97 98 98 Oxygen Delivery Method Room Air Weight Weight: 159 lb 4.8 oz Body Mass Index (BMI) 29.1 Physical Exam Const alert, oriented x3, no apparent distress and average body habitus General Appearance: cooperative HEENT normocephalic, head/scalp atraumatic, hearing grossly normal bilaterally and moist oral mucous membranes Eyes PERRL and EOMs intact bilaterally Neck no lymphadenopathy and supple Resp normal respiratory effort, no retractions, no use of accessory muscles and clear to auscultation bilaterally Cardio regular rate and regular rhythm GI normal to inspection, nondistended, normoactive bowel sounds, soft to palpation, non-tender and non-distended Extremity normal to inspection, full ROM and no clubbing, cyanosis or edema Skin Skin Narrative: Patient has no evidence of rash, abscess, wounds or jaundice. Neuro oriented x3, CN's II-XII intact bilaterally, moves all extremities and no focal motor deficits Sensorium / Orientation: awake, alert, oriented to person, oriented to place and oriented to time Speech: speech normal Psych affect normal Results Medical Records Data Attestation: I reviewed the patient's medical records Lab / Micro Data Attestation: I reviewed the patient's lab results. 05/19/25 00:45 05/19/25 00:45 Labs: Laboratory Results - last 24 hr 05/19/25 00:30: Urine Opiates Screen NEGATIVE, U Buprenorphine Qual NEGATIVE, Ur Oxycodone Screen NEGATIVE, Urine Methadone Screen NEGATIVE, Urine Fentanyl Screen NEGATIVE, Ur Barbiturates Screen NEGATIVE, Ur Phencyclidine Scrn NEGATIVE, Ur Amphetamines Screen NEGATIVE, U Benzodiazepines Scrn NEGATIVE, Urine Cocaine Screen NEGATIVE, U Cannabinoids Screen PRESUMPTIVE POSITIVE 05/19/25 00:45: WBC 5.6, RBC 5.01, Hgb 15.8, Hct 46.7, MCV 93.2, MCH 31.5, MCHC 33.8, RDW Std Deviation 44.1 H, RDW Coeff of Liz 13.0, Plt Count 360, MPV 9.2, Immature Gran % (Auto) 0.400, Neut % (Auto) 45.7 L, Lymph % (Auto) 43.7 H, [place] % (Auto) 7.3, Eos % (Auto) 1.8, Baso % (Auto) 1.1 H, Absolute Neuts (auto) 2.6, Absolute Lymphs (auto) 2.46, Nucleated RBC % 0, Sodium 143, Potassium 4.2, Chloride 106, Carbon Dioxide 23.2, Anion Gap 14, BUN 7, Creatinine 0.68 L, Estim Creat Clear Calc 105.79, Est GFR (MDRD) Non-Af 109, BUN/Creatinine Ratio 10.9, Glucose 92, Calcium 9.3, Total Bilirubin 0.22, AST 24, ALT 32, Alkaline Phosphatase 93, Total Protein 7.8, Albumin 4.8, Globulin 3.0, Albumin/Globulin Ratio 1.6, Ethyl Alcohol 218.0 H Assessment & Plan Assessment/Plan (1) Acute alcohol intoxication with alcoholism: QUALIFIERS: Complication of substance-induced condition: uncomplicated Qualified Code(s): F10.220 - Alcohol dependence with intoxication, uncomplicated (2) Cannabis abuse: PLAN: Plan 1. Acute EtOH intoxication in the setting of chronic EtOH abuse - Admit to general medical floor for treatment under the EtOH detox protocol primarily consisting of phenobarbital taper. EtOH cessation will be strongly encouraged. Give ondansetron as needed for nausea and vomiting. Give ibuprofen as needed for pain or fever. Finally, we will consult case management sees patient on rounds in the a.m. so he can be referred to 180. Appreciated in advance. 2. UDS positive for cannabinoids complicating #1 - Cannabis Cessation will be strongly encouraged. 3. Essential hypertension; on lisinopril - Continue lisinopril as previous. 4. Depression; on trazodone plus risperidone BID - Maintain home regimen. 5 DVT prophylaxis - Enoxaparin 40 mg subcu daily plus patient up ad pauline. Total time: Approximately (but not less than) 40 minutes. Charges/Coding Visit Charges Inpatient E&M: 95789 Init Hosp L1
[2025-05-19] MEDS: 0.9% Saline Lock 10 ML Syringe IV ×2 (05:57→13:05)
[2025-05-19] MEDS: 0.9% Normal Saline (1000mL) 1,000 ML 100 ML IV ×2 (05:57→16:26)
[2025-05-19 06:52] LABS: Prothrombin Time (Protime)PT. 13.2 SECONDS (11.7-14.9)
[2025-05-19 07:01] LABS: Magnesium 2.0 mg/dL (1.5-2.2)
--- NOTE | 2025-05-19 08:19 | PN.HOSP_ITS ---
Reason for Visit Chief Complaint: Requesting EtOH Detox. Subjective Subjective Feeling ok. No new events. Objective Data Objective Data Vital Signs: Vital Signs Temp Pulse Resp BP Pulse Ox O2 Del Method 36.4 C L 64 18 120/82 H 97 Room Air 05/19/25 05:22 05/19/25 05:22 05/19/25 05:22 05/19/25 05:22 05/19/25 05:22 05/19/25 06:00 Oxygen Delivery Method Room Air Weight: 70.6 kg Body Mass Index (BMI) 28.4 Intake & Output: Intake and Output for Last 24 Hours 05/17/25 05/18/25 05/19/25 23:59 23:59 23:59 Intake Total 400 / 400 Balance 400 / 400 Lab / Micro Data 05/19/25 00:45 05/19/25 00:45 Labs: Laboratory Results - last 24 hr 05/19/25 00:30: Urine Opiates Screen NEGATIVE, U Buprenorphine Qual NEGATIVE, Ur Oxycodone Screen NEGATIVE, Urine Methadone Screen NEGATIVE, Urine Fentanyl Screen NEGATIVE, Ur Barbiturates Screen NEGATIVE, Ur Phencyclidine Scrn NEGATIVE, Ur Amphetamines Screen NEGATIVE, U Benzodiazepines Scrn NEGATIVE, Urine Cocaine Screen NEGATIVE, U Cannabinoids Screen PRESUMPTIVE POSITIVE 05/19/25 00:45: WBC 5.6, RBC 5.01, Hgb 15.8, Hct 46.7, MCV 93.2, MCH 31.5, MCHC 33.8, RDW Std Deviation 44.1 H, RDW Coeff of Liz 13.0, Plt Count 360, MPV 9.2, Immature Gran % (Auto) 0.400, Neut % (Auto) 45.7 L, Lymph % (Auto) 43.7 H, [place] % (Auto) 7.3, Eos % (Auto) 1.8, Baso % (Auto) 1.1 H, Absolute Neuts (auto) 2.6, Absolute Lymphs (auto) 2.46, Nucleated RBC % 0, Sodium 143, Potassium 4.2, Chloride 106, Carbon Dioxide 23.2, Anion Gap 14, BUN 7, Creatinine 0.68 L, Estim Creat Clear Calc 105.79, Est GFR (MDRD) Non-Af 109, BUN/Creatinine Ratio 10.9, Glucose 92, Calcium 9.3, Phosphorus 5.2 H, Magnesium 2.0, Total Bilirubin 0.22, AST 24, ALT 32, Alkaline Phosphatase 93, Total Protein 7.8, Albumin 4.8, Globulin 3.0, Albumin/Globulin Ratio 1.6, TSH 0.710, Ethyl Alcohol 218.0 H 05/19/25 06:25: PT 13.2, INR 1.0 Physical Exam Const alert and no apparent distress Constitutional Narrative: lying in bed. afebrile. non-toxic. HEENT head/scalp atraumatic and moist oral mucous membranes Assessment & Plan Assessment/Plan (1) Acute alcohol intoxication with alcoholism: QUALIFIERS: Complication of substance-induced condition: u ncomplicated Qualified Code(s): F10.220 - Alcohol dependence with intoxication, uncomplicated (2) Cannabis abuse: PLAN: Plan Alcohol withdrawal. * phenobarbial taper * adjuctive medication for somatic issues with his withdrawal. * addiction medicine to see and determine outpt programs. Chronic conditions: * THC use: complicates long-term recovery * Essential hypertension; on lisinopril - Continue lisinopril as previous. * Depression; on trazodone plus risperidone BID - Maintain home regimen. DVT prophylaxis - Enoxaparin 40 mg subcu daily plus patient up ad pauline. Charges/Coding Visit Charges Inpatient E&M: 37281 Subs Hosp L1
[2025-05-19] MEDS: Thiamine Hydrochloride 100 MG Tablet PO (08:55)
--- NOTE | 2025-05-19 16:14 | CASEMGMT ---
Social Work- SW met with pt to complete SDOH assessment. Pt reports that he had been in inpatient rehab in [place], moving to [facility] when his son . Pt reports that he returned to [place] to bury his son and decided to stay for his other children in the area. Pt reports that he sought out treatment and was directed to the [facility]. Pt reports that he has been in [place] for one month and needs to switch his [place] SHAS[place] to [place] SHASHA. Pt reports that he plans to seek inpatient treatment again. Pt agreeable to meeting with [facility] to discuss if she is able to assist with SHASHA. SW emailed Lesley referral. SW provided information on [place], PCP list, [facility], [facility] transport, homeless shelters, [facility], and housing support. Pt reports that he meets with Jack, counselor. Pt reports no other needs at this time. SW remains available to follow. WESLY Amezquita
--- NOTE | 2025-05-19 19:39 | ADDICTION ---
Pt was met w/for [facility] assessment and to complete AUDIT, DUDIT, ASAM, JAMIE, MSE, and DC Plan. Pt states that he is interested in residential tx but he does not have [place] Medicaid. He currently has '[place] Blue' Medicaid. Pt needs assistance contacting Medicaid to switch his insurance from [place] to [place]. Pt was open to exploring options for inpatient tx outside of [facility] d/t current wait-list w/[facility] residential and ongoing conflict of interest at [facility]. Pt was referred to [facility] in [place] and [facility] in [place]. His H&P and face sheet were faxed to both agency's admission's teams, but cl will likely be unable to admit to any residential provider w/out first switching his Medicaid to [place]. Pt is homeless and admits he is open to going to [facility] to wait for an inpatient bed if needed. Tasia has been notified of pt's current barriers and she will f/u Wednesday.
[2025-05-20 01:47] VITALS: BP 133/80; PULSE 63; RESP 16; TEMP 36.4; O2SAT 99
[2025-05-20 04:54] LABS: Hematocrit 39.5 % (40-54); Hemoglobin 13.6 g/dL (13.0-16.5); Immature Granulocytes Count 0.030 X10^3/uL (0.0-0.0); Mean Corp Hgb Conc 34.4 g/dL (32-36); Mean Corpuscular Volume 91.6 fL (80-94); Mean Platelet Vol. 9.6 fl (6.2-12.0); NRBC Flagged by Analyzer 0 % (0-5); Platelet Count 283 K/mm3 (150-450); RBC Distribution Width CV 12.7 % (11.6-14.6); RBC Distribution Width SD 43.5 fl (35.1-43.9); Red Blood Count 4.31 M/mm3 (4.6-6.2); White Blood Count 5.1 K/mm3 (4.4-11.0)
[2025-05-20 04:59] LABS: Albumin, Serum 3.6 g/dL (3.5-5.0); BUN 13 mg/dL (4-19); BUN/Creat Ratio 17.3 RATIO (10-20); Estimated Creatinine Clearance 94.89 ml/min (50-250); Glucose 105 mg/dL (70-99)
[2025-05-20 05:00] LABS: AST(SGOT) 16 U/L (<=37); Alanine Aminotransfer ALT/SGPT 19 U/L (<=46); Alkaline Phosphatase 75 U/L (40-129); Anion Gap 9 (5-15); Calcium,Total 8.5 mg/dL (7.6-11.0); Carbon Dioxide 24.1 mmol/L (21.0-32.0); Chloride 104 mmol/L (98-108); Globulin 2.2 g/dL (2.2-4.2); Potassium 3.9 mmol/L (3.3-5.1)
[2025-05-20 06:00] VITALS: BMI 28.6
--- NOTE | 2025-05-20 08:48 | PN.HOSP_ITS ---
Reason for Visit Chief Complaint: Requesting EtOH Detox. Subjective Subjective Having tremors. Objective Data Objective Data Vital Signs: Vital Signs Temp Pulse Resp BP Pulse Ox O2 Del Method 36.4 C L 63 16 133/80 H 99 Room Air 05/20/25 01:47 05/20/25 01:47 05/20/25 01:47 05/20/25 01:47 05/20/25 01:47 05/20/25 04:00 Oxygen Delivery Method Room Air Weight: 70.6 kg Body Mass Index (BMI) 28.6 Intake & Output: Intake and Output for Last 24 Hours 05/18/25 05/19/25 05/20/25 23:59 23:59 23:59 Intake Total 2240 / 2240 1300 / 1300 Output Total 500 / 500 Balance 1740 / 1740 1300 / 1300 Lab / Micro Data 05/20/25 04:15 05/20/25 04:15 Labs: Laboratory Results - last 24 hr 05/20/25 04:15: WBC 5.1, RBC 4.31 L, Hgb 13.6, Hct 39.5 L, MCV 91.6, MCH 31.6, MCHC 34.4, RDW Std Deviation 43.5, RDW Coeff of Liz 12.7, Plt Count 283, MPV 9.6, Immature Gran % (Auto) 0.600, Neut % (Auto) 52.8, Lymph % (Auto) 32.9, [place] % (Auto) 7.9, Eos % (Auto) 4.4, Baso % (Auto) 1.4 H, Absolute Neuts (auto) 2.7, Absolute Lymphs (auto) 1.66, Nucleated RBC % 0, Sodium 138, Potassium 3.9, Chloride 104, Carbon Dioxide 24.1, Anion Gap 9, BUN 13, Creatinine 0.75, Estim Creat Clear Calc 94.89, Est GFR (MDRD) Non-Af 106, BUN/Creatinine Ratio 17.3, G lucose 105 H, Calcium 8.5, Total Bilirubin 0.28, AST 16, ALT 19, Alkaline Phosphatase 75, Total Protein 5.7 L, Albumin 3.6, Globulin 2.2, Albumin/Globulin Ratio 1.7 Social Homelessness:: Sheltered Physical Exam Const Constitutional Narrative: lying in bed. awake. non-toxic. afebrile. Cardio regular rate and regular rhythm Neuro Sensorium / Orientation: awake and alert Assessment & Plan Assessment/Plan (1) Acute alcohol intoxication with alcoholism: QUALIFIERS: Complication of substance-induced condition: u ncomplicated Qualified Code(s): F10.220 - Alcohol dependence with intoxication, uncomplicated (2) Cannabis abuse: PLAN: Plan Alcohol withdrawal. * phenobarbial taper. Continue thiamine and folate. * adjuctive medication for somatic issues with his withdrawal. * addiction medicine to see and determine outpt programs. * pt with ongoing withdrawal symptoms and requires ongoing mgmt with phenobarbital and PRN medications. Patient require further inpatient monitoring for symptoms and despite no changes to his medications. Chronic conditions: * THC use: complicates long-term recovery * Essential hypertension; on lisinopril - Continue lisinopril as previous. * Depression; on trazodone plus risperidone BID - Maintain home regimen. DVT prophylaxis - Enoxaparin 40 mg subcu daily plus patient up ad pauline. Charges/Coding Visit Charges Inpatient E&M: 21174 Subs Hosp L1
[2025-05-20 09:20] VITALS: BP 126/63; PULSE 57; RESP 16; TEMP 36.5; O2SAT 98
[2025-05-20] MEDS: Thiamine Hydrochloride 100 MG Tablet PO (09:25)
[2025-05-20 15:00] VITALS: BP 116/60; PULSE 61; RESP 16; TEMP 36.4; O2SAT 98
[2025-05-20 20:44] VITALS: BP 142/94; PULSE 54; RESP 18; TEMP 36.6; O2SAT 99
[2025-05-20] MEDS: hydrOXYzine PAM 25 MG Capsule 50 MG PO (20:50)
[2025-05-21 05:06] VITALS: BMI 29.9
[2025-05-21 05:09] VITALS: BP 116/72; PULSE 50; RESP 18; TEMP 36.3; O2SAT 95
[2025-05-21 08:35] VITALS: BP 120/76; PULSE 58; RESP 17; TEMP 36.7; O2SAT 100
[2025-05-21] MEDS: Thiamine Hydrochloride 100 MG Tablet PO (08:38)
--- NOTE | 2025-05-21 09:57 | CASEMGMT ---
Social Work Message left for Lesley with [facility] requesting a presumptive Medicaid number once she sees pt. Pt plans to go to residential treatment for alcohol and will need a presumptive Medicaid number to go. MATTHEW Faith
--- NOTE | 2025-05-21 11:14 | PN_ITS ---
Subjective Subjective Patient seen and examined. He had no active complaints. Review of systems is otherwise negative. He has remained hemodynamically stable. Objective Data Objective Data Vital Signs: Vital Signs Temp Pulse Resp BP Pulse Ox O2 Del Method 98.0 F 58 L 17 120/76 100 Room Air 05/21/25 08:35 05/21/25 08:35 05/21/25 08:35 05/21/25 08:35 05/21/25 08:35 05/21/25 09:11 Oxygen Delivery Method Room Air Weight: 162 lb 7.691 oz Body Mass Index (BMI) 29.9 Intake & Output: Intake and Output for Last 24 Hours 05/19/25 05/20/25 05/21/25 23:59 23:59 23:59 Intake Total 2240 / 2240 1990 / 2320 530 / 530 Output Total 500 / 500 900 / 900 Balance 1740 / 1740 1090 / 1420 530 / 530 Lab / Micro Data 05/20/25 04:15 05/20/25 04:15 Social Homelessness:: Sheltered Physical Exam Const alert, oriented x3 and no apparent distress General Appearance: cooperative HEENT normocephalic, head/scalp atraumatic, moist oral mucous membranes and oropharynx normal Neck no lymphadenopathy and supple Lymph Lymphatic: no lymphedema noted Resp normal respiratory effort, normal air movement and clear to auscultation bilaterally Cardio regular rate, regular rhythm, S1 normal heart sound and S2 normal heart sound GI normal to inspection, nondistended, normoactive bowel sounds, soft to palpation and non-tender Extremity normal capillary refill, no clubbing, cyanosis or edema and no calf tenderness General Extremity: no tenderness to palpation of joints or extremities Skin General Skin Exam: no breakdown Neuro no focal motor deficits and no sensory deficits noted Motor Exam: strength 5/5 throughout Psych thought process normal, cooperative and affect normal Appearance: appropriate Assessment & Plan Assessment/Plan (1) Acute alcohol intoxication with alcoholism: QUALIFIERS: Complication of substance-induced condition: u ncomplicated Qualified Code(s): F10.220 - Alcohol dependence with intoxication, uncomplicated PLAN: Plan #Acute alcohol withdrawal * on alcohol withdrawal protocol with phenobarbital * adjunctive meds for symptomatic relief * on thiamine, folic acid and multivite * #Hisotry of mairjuana dependence: counseled to quit. #Benign essential hypertension: on lisinopril Depression; on risperdal and trazodone DVT prophylaxis: lovenox Disposition: for DC tomorrow, with transport arranged to facility at 10am. Charges/Coding Visit Charges Inpatient E&M: 16908 Subs Hosp L2
--- NOTE | 2025-05-21 11:17 | ADDICTION ---
Met with pt today to discuss d/c planning. Pt has been approved by [facility]. They plan on picking him up tomorrow morning at 10am.
--- NOTE | 2025-05-21 12:25 | CASEMGMT ---
Social Work Pt asked to speak to the insurance lady. SW left a message for Lesley, but did go in to see pt. Pt was on the phone w/[employer]. After some initial confusion, pt did cancel his insurance in [place], effective midnight tonight. Plan is then for pt to apply for [place] Medicaid tomorrow. MATTHEW Faith
[2025-05-21 15:00] VITALS: BP 118/72; PULSE 62; RESP 16; TEMP 36.9; O2SAT 100
[2025-05-21 22:23] VITALS: BP 135/94; PULSE 56; RESP 18; TEMP 36.5; O2SAT 100
[2025-05-21] MEDS: 0.9% Saline Lock 10 ML Syringe IV (22:31)
[2025-05-22] MEDS: hydrOXYzine PAM 25 MG Capsule 50 MG PO (01:34)
[2025-05-22 06:00] VITALS: BMI 29.8
[2025-05-22 06:08] VITALS: BP 124/84; PULSE 60; RESP 16; TEMP 37.1; O2SAT 97
[2025-05-22 08:10] VITALS: BP 117/74; PULSE 59; RESP 16; TEMP 36.3; O2SAT 98
[2025-05-22] MEDS: Thiamine Hydrochloride 100 MG Tablet PO (08:12)
--- NOTE | 2025-05-22 09:35 | DCINST_ITS ---
Discharge Instructions DC O2, CPAP, BIPAP needs Home O2 Discharge instructions: No Dressing / Incision Discharge Activity: Return to Normal Activity Weight Bearing Status: Weight bearing as tolerated Dressing / Incision Call your doctor if you observe: Fever of 101 or Higher, Shortness of breath, Dizziness, Swelling in the ankles and Chest pain Follow Up Care Test Results: Test results from this visit will be discussed in further detail at your follow- up appointment, if applicable. Discharge Plan Admission Admit Date/Time: 05/19/25 04:36 Primary Reason for Your Visit: acute alcohol withdrawal Attending Provider: Seda Romero Primary Care Provider: Teresa Rivera Primary Consulting Providers: Frankie Osorio; Robin Velez Instructions Patient Instructions: Alcohol Withdrawal: What to Expect Discharge Orders/Prescriptions Prescriptions: Continued lisinopril 20 mg tablet 20 mg PO DAILY trazodone 150 mg tablet 150 mg PO DAILY risperidone [Risperdal] 1 mg tablet 1 mg PO DAILY risperidone [Risperdal] 2 mg tablet 2 mg PO QHS sertraline [Zoloft] 25 mg tablet 25 mg PO DAILY Referrals / Follow Up: Care Physician,No Primary [Primary Care Provider, Medical] Disposition Disposition (needs filled in before D/C Order can be placed): Home, Self Care
--- NOTE | 2025-05-22 09:35 | PCM.DC.SUM ---
Providers Date of Admission: 05/19/25 Date of Discharge: 05/22/25 Primary Care Physician: Teresa Primary Care Phys Reason For Visit: ETOH DETOX Diagnosis Discharge Diagnosis (1) Acute alcohol intoxication with alcoholism: Status: Acute Code(s): F10.229 - Alcohol dependence with intoxication, unspecified Qualifiers: Complication of substance-induced condition: uncomplicated Qualified Code(s): F10.220 - Alcohol dependence with intoxication, uncomplicated Plan #Acute alcohol withdrawal on alcohol withdrawal protocol with phenobarbital adjunctive meds for symptomatic relief on thiamine, folic acid and multivite #Hisotry of mairjuana dependence: counseled to quit. #Benign essential hypertension: on lisinopril Depression; on risperdal and trazodone DVT prophylaxis: lovenox Disposition: for PA tomorrow, with transport arranged to facility at 10am. Medications at Discharge Home Medications lisinopril 20 mg tablet 20 mg PO DAILY blood pressure 05/19/25 risperidone 1 mg tablet (Risperdal) 1 mg PO DAILY depression 05/19/25 risperidone 2 mg tablet (Risperdal) 2 mg PO [facility] mental health 05/19/25 sertraline 25 mg tablet (Zoloft) 25 mg PO DAILY depression 05/19/25 trazodone 150 mg tablet 150 mg PO DAILY sleep 05/19/25 Hospital Course Operations None Procedures None Summary of Care Provided Minutes Spent on Discharge: 45 Hospital Course: Patient is a 54-year-old male with a past medical history as outlined was admitted to the ED on 05/19/2025 for acute alcohol detox. Patient drank 4 bottles of malt liquor daily. He had last drank a few hours prior to admission. He also admitted to cannabinoid use. In the ED he had blood alcohol level of 218. Urine tox was positive for cannabinoids. He was admitted to be managed for acute alcohol detox with potential for withdrawal. He was started on phenobarbital protocol with adjunctive meds for symptomatic relief as well as p.o. thiamine, folic acid and Multi-Jeanette. He tolerated the 3-day detox and did well. He was discharged to a residential facility for alcohol addiction treatment on 05/22/2025. He is follow-up with his primary care doctor within 1 to 2 weeks. Patient seen and examined prior to discharge. He had no active complaints and felt well. He had an uneventful night. Review of systems otherwise negative. Labs and vitals reviewed. Home medication reviewed and reconciled. Physical Exam Const alert, oriented x3, no apparent distress and average body habitus General Appearance: cooperative and well kempt Orientation / Consciousness: awake HEENT normocephalic, head/scalp atraumatic, hearing grossly normal bilaterally, moist oral mucous membranes and oropharynx normal Mouth: oral and palatal mucosa normal Eyes PERRL and EOMs intact bilaterally Neck supple Lymph Lymphatic: no lymphedema noted Resp normal respiratory effort, normal air movement, no retractions, no use of accessory muscles and clear to auscultation bilaterally Cardio regular rate, regular rhythm, S1 normal heart sound and S2 normal heart sound GI normal to inspection, nondistended, normoactive bowel sounds, soft to palpation, non-tender and non-distended Extremity normal to inspection, full ROM, normal capillary refill, no clubbing, cyanosis or edema and no calf tenderness General Extremity: no tenderness to palpation of joints or extremities Skin no rashes or lesions noted General Skin Exam: no breakdown Neuro oriented x3, CN's II-XII intact bilaterally, moves all extremities, no focal motor deficits and no sensory deficits noted Sensorium / Orientation: awake, alert, oriented to person, oriented to place and oriented to time Speech: speech normal Motor Exam: strength 5/5 throughout Psych thought process normal, cooperative and affect normal Appearance: appropriate Medical Records Data Homelessness:: Sheltered Weight / BMI Weight Weight: 162 lb 0.636 oz Body Mass Index (BMI) 29.8 ABG / Lab / Microbiology Data 05/20/25 04:15 05/20/25 04:15 D/C Instructions Discharge Activity: Return to Normal Activity Weight Bearing Status: Weight bearing as tolerated Call your doctor if you observe: Fever of 101 or Higher, Shortness of breath, Dizziness, Swelling in the ankles and Chest pain DC O2, CPAP, BIPAP Needs Home O2 Discharge instructions: No DC home with Oxygen: No Meaningful Use Info Meaningful Use Meaningful Use Diagnoses (Choose all that apply): None applicable Discharge Plan Admission Admit Date/Time: 05/19/25 04:36 Primary Reason for Your Visit: acute alcohol withdrawal Attending Provider: Seda Romero Primary Care Provider: Care Physician,No Primary Consulting Providers: Frankie Osorio; Robin Velez Instructions Patient Instructions: Alcohol Withdrawal: What to Expect Discharge Orders/Prescriptions Prescriptions: Continued lisinopril 20 mg tablet 20 mg PO DAILY trazodone 150 mg tablet 150 mg PO DAILY risperidone [Risperdal] 1 mg tablet 1 mg PO DAILY risperidone [Risperdal] 2 mg tablet 2 mg PO QHS sertraline [Zoloft] 25 mg tablet 25 mg PO DAILY Referrals / Follow Up: Care Physician,No Primary [Primary Care Provider, Medical] Disposition Disposition (needs filled in before D/C Order can be placed): Home, Self Care Charges/Coding Visit Charges Inpatient E&M: 42719 Disch Hosp >30min
== END 2025-05-22 10:06 | disposition home or self-care (01) | DRG 897 ==
LOC: ED 05-19 01:30 → MS3 05-19 04:53
PROVIDERS: Admitting Provider Internal Medicine; Emergency Provider Emergency Medicine; Visit Provider Student in an Organized Health Care Education/Training Program
DX: F10.139 Alcohol abuse with withdrawal, unspecified (principal); Z59.01 Sheltered homelessness; F12.10 Cannabis abuse, uncomplicated; I10 Essential (primary) hypertension; F32.A Depression, unspecified; Z79.899 Other long term (current) drug therapy; Y90.7 Blood alcohol level of 200-239 mg/100 ml
CPT/HCPCS: 36415; 80053; 80307; 82077; 83735; 84100; 84443; 85025; 85610; 99284; A4216